=== PATIENT | male | born 1980 | race Caucasian/White ===

== ENCOUNTER 2021-11-05 21:04 | Emergency (ER) | payer SELFPAY ==
[2021-11-05] MEDS ORDERED: NA CHLORIDE 0.9% 500 ML ONE (22:07)
[2021-11-05] MEDS ORDERED: METOCLOPRAMIDE 10 MG/2mL INJ ONE (22:07)
[2021-11-05 22:09] LABS: Absolute Lymphocytes (CBC) 2.2 K/uL (0.7-4.9); Hematocrit 42.3 % (39.6-49.0); Lymphocytes % 32.2 % (15.3-44.8); MPV 8.8 fL (7.6-11.3); RBC Red Blood Cell Count 4.79 M/uL (4.33-5.43)
[2021-11-05 22:25] LABS: BUN Blood Urea Nitrogen 15 mg/dL (7-18); Bicarbonate 30 mmol/L (21-32); Glucose Level 94 mg/dL (74-106); Sodium Level 140 mmol/L (136-145)
[2021-11-05 22:29] LABS: Troponin High Sensitivity < 3.0 pg/mL (<58.9)
--- NOTE | 2021-11-06 00:23 | ER ---
Nurse's Notes [facility] Name: Roque Schumacher Age: 41 yrs Sex: Male : 1980 Arrival Date: 11/05/2021 Time: 21:09 Bed 28 Private MD: Diagnosis: Headache;Syncope Presentation: 11/05 21:18 Chief complaint: Patient states: MCCORD x 3 weeks. Coronavirus screen: Vaccine status: caren Patient reports being unvaccinated. Ebola Screen: Patient negative for fever greater than or equal to 101.5 degrees Fahrenheit, and additional compatible Ebola Virus Disease symptoms Patient denies exposure to infectious person. Patient denies travel to an Ebola-affected area in the 21 days before illness onset. Initial Sepsis Screen: Does the patient meet any 2 criteria? No. Patient's initial sepsis screen is negative. Does the patient have a suspected source of infection? No. Patient's initial sepsis screen is negative. Risk Assessment: Do you want to hurt yourself or someone else? Patient reports no desire to harm self or others. Onset of symptoms was October 18, 2021. 21:18 Method Of Arrival: Ambulatory caren 21:18 Acuity: MANJEET 3 caren Triage Assessment: 21:22 Headache History: Other MCCORD x 3 weeks with no relief from OTC medications. General: caren Appears uncomfortable, Behavior is calm, cooperative. Pain: Pain currently is 8 out of 10 on a pain scale. Pain began Started 3 weeks ago and is not relieved with OTC medications. Neuro: No deficits noted. 21:35 Pain: Also complains of nausea. Neuro: Reports dizziness, headache occipital area. lr4 Historical: - Allergies: 21:21 No Known Allergies; caren - Immunization history:: Client reports having NOT received the Covid vaccine. - Social history:: Smoking status: Patient reports the use of cigarette tobacco products, smokes one-half pack cigarettes per day. Screenin:34 Abuse screen: Denies threats or abuse. Nutritional screening: No deficits noted. lr4 Tuberculosis screening: No symptoms or risk factors identified. Fall Risk None identified. Assessment: 21:34 General: Appears in no apparent distress. comfortable, Behavior is calm, cooperative. lr4 Pain: Complains of pain in scalp Pain currently is 8 out of 10 on a pain scale. Quality of pain is described as pressure. 21:34 Neuro: No deficits noted. Cardiovascular: No deficits noted. Respiratory: No deficits lr4 noted. GI: Abdomen is flat, non-distended, Reports nausea, vomiting. 23:55 Reassessment: Patient is alert, oriented x 3, equal unlabored respirations, skin lr4 warm/dry/pink. Patient states symptoms have not improved. 11/06 00:32 Reassessment: Patient is alert, oriented x 3, equal unlabored respirations, skin bb warm/dry/pink. pt verbalized understanding of and agrees to plan of care discharge instructions given pt ambulated with steady gait to exit accompanied by family. Vital Signs: 11/05 21:18 BP 132 / 91; Pulse 71; Resp 18; Temp 98.9; Pulse Ox 100% on R/A; Weight 81.65 kg; caren Height 6 ft. 0 in. (182.88 cm); Pain 8/10; 21:24 BP 132 / 91; Pulse 71; Resp 18; Temp 98.9; Pulse Ox 100% on R/A; Pain 8/10; caren 23:27 BP 101 / 54; Pulse 62; Resp 18; Pulse Ox 99% on R/A; ss7 11/06 00:33 BP 122 / 94; Pulse 68; Resp 16 S; Pulse Ox 97% on R/A; bb 11/05 21:18 Body Mass Index 24.41 (81.65 kg, 182.88 cm) caren ED Course: 11/05 21:09 Patient arrived in ED. ja2 21:21 Triage completed. caren 21:24 Arm band placed on right wrist. caren 21:31 Junior Mancia PA is PHCP. jmm 21:31 Jorge Alonso DO is Attending Physician. jmm 21:33 Megan Farmer, BRIELLE is Primary Nurse. lr4 21:35 Patient has correct armband on for positive identification. Bed in low position. Call lr4 light in reach. Adult w/ patient. 21:35 No provider procedures requiring assistance completed. lr4 23:13 CT Head Brain wo Cont In Process Unspecified. EDMS 23:13 CT Head Angio In Process Unspecified. EDMS 11/06 00:21 Ephraim Darling MD is Referral Physician. jmm 00:21 Branden Campos MD is Referral Physician. jmm 00:21 David Cowan MD is Referral Physician. [facility] 00:21 David Manzanares MD is Referral Physician. [facility] 00:22 Tyrell Oshea MD is Referral Physician. [facility] 00:34 IV discontinued, intact, bleeding controlled, No redness/swelling at site. Pressure bb dressing applied. Administered Medications: 11/05 22:06 Drug: Reglan (metoCLOPramide) 20 mg Route: IVP; Site: left antecubital; lr4 23:54 Follow up: Response: Pain is decreased lr4 22:07 Drug: NS 0.9% 500 ml Route: IV; Rate: bolus; Site: left antecubital; lr4 23:54 Follow up: IV Status: Completed infusion lr4 Outcome: 21:35 Condition: stable lr4 11/06 00:22 Discharge ordered by . [facility] 00:34 Discharged to home ambulatory, with family. bb 00:34 Discharge instructions given to patient, Instructed on discharge instructions, follow up and referral plans. Demonstrated understanding of instructions, follow-up care. 00:35 Patient left the ED. bb Signatures: Dispatcher [employer] EDMS Junior Mancia PA PA jmm Ballard, Brenda, RN RN Zulema Harley Brenda, RN Irma Iraheta RN RN ss7 Megan Farmer RN RN lr4 Corrections: (The following items were deleted from the chart) 11/05 22:31 21:56 To radiology for Chest Single View+RAD.RAD.BRZ. lr4 EDMS
--- NOTE | 2021-11-06 00:23 | EDPHYS ---
Physician Documentation [facility] Name: Roque Schumacher Age: 41 yrs Sex: Male : 1980 Arrival Date: 11/05/2021 Time: 21:09 Bed 28 Private MD: ED Physician Jroge Alonso HPI: 11/05 21:42 This 41 yrs old Male presents to ER via Ambulatory with complaints of Dizziness, jmm Headache, Fainting, Nausea/Vomiting. 21:42 The patient complains of pain to the left base of the skull and right base of the jmm skull. The patient describes the headache as aching, throbbing. Onset: The symptoms/episode began/occurred gradually. This is a 41-year-old male no known chronic medical conditions presents emerged department with ongoing headache for the past 3 weeks. Pain is mainly at the base of his skull. Patient states he takes Excedrin every 4 hours to relieve symptoms. Denies fever, neck stiffness. Patient states he has had multiple episodes of syncope. Denies chest pain or shortness of breath. Historical: - Allergies: 21:21 No Known Allergies; caren - Immunization history:: Client reports having NOT received the Covid vaccine. - Social history:: Smoking status: Patient reports the use of cigarette tobacco products, smokes one-half pack cigarettes per day. ROS: 21:42 Constitutional: Negative for fever, chills, and weight loss, Cardiovascular: Negative jmm for chest pain, palpitations, and edema, Respiratory: Negative for shortness of breath, cough, wheezing, and pleuritic chest pain. 21:42 Neuro: Positive for headache, syncope. 21:42 All other systems are negative. Exam: 21:42 Constitutional: This is a well developed, well nourished patient who is awake, alert, jmm and in no acute distress. Head/Face: atraumatic. Eyes: EOMI, no conjunctival erythema appreciated ENT: Moist Mucus Membranes Neck: Trachea midline, Supple Chest/axilla: Normal chest wall appearance and motion. Cardiovascular: Regular rate and rhythm. No edema appreciated Respiratory: Normal respirations, no respiratory distress appreciated Abdomen/GI: Non distended, soft Back: Normal ROM Skin: General appearance color normal MS/ Extremity: Moves all extremities, no obvious deformities appreciated, no edema noted to the lower extremities Neuro: Awake and alert Psych: Behavior is normal, Mood is normal, Patient is cooperative and pleasant Vital Signs: 21:18 BP 132 / 91; Pulse 71; Resp 18; Temp 98.9; Pulse Ox 100% on R/A; Weight 81.65 kg; caren Height 6 ft. 0 in. (182.88 cm); Pain 8/10; 21:24 BP 132 / 91; Pulse 71; Resp 18; Temp 98.9; Pulse Ox 100% on R/A; Pain 8/10; caren 23:27 BP 101 / 54; Pulse 62; Resp 18; Pulse Ox 99% on R/A; ss7 11/06 00:33 BP 122 / 94; Pulse 68; Resp 16 S; Pulse Ox 97% on R/A; bb 11/05 21:18 Body Mass Index 24.41 (81.65 kg, 182.88 cm) caren MDM: 11/05 21:42 Patient medically screened. [facility] 11/06 00:16 Data reviewed: vital signs, nurses notes. Counseling: I had a detailed discussion with [facility] the patient and/or guardian regarding: the historical points, exam findings, and any diagnostic results supporting the discharge/admit diagnosis, lab results, radiology results, the need for outpatient follow up. ED course: There is mild relief of the patient's pain, headache. CT and CTA were negative. Patient's neck is supple, I do not suspect meningitis or subarachnoid hemorrhage. [place] syncope rules are negative. Patient advised follow-up with cardiology and neurology for further evaluation. Patient otherwise given strict return precautions. Patient understood agrees plan of care.. 11/05 21:48 Order name: Basic Metabolic Panel; Complete Time: 23:05 [facility] 11/05 21:48 Order name: CBC with Diff; Complete Time: 23:05 [facility] 11/05 21:48 Order name: Troponin HS; Complete Time: 23:05 [facility] 11/05 21:50 Order name: CT Head Brain wo Cont [facility] 11/05 21:50 Order name: CT Head Angio [facility] 11/05 21:48 Order name: EKG; Complete Time: 21:49 [facility] 11/05 21:48 Order name: Cardiac monitoring; Complete Time: 21:56 [facility] 11/05 21:48 Order name: EKG - Nurse/Tech; Complete Time: 21:56 [facility] 11/05 21:48 Order name: IV Saline Lock; Complete Time: 21:56 [facility] 11/05 21:48 Order name: Labs collected and sent; Complete Time: 21:56 [facility] 11/05 21:48 Order name: O2 Per Protocol; Complete Time: 21:57 [facility] 11/05 21:48 Order name: O2 Sat Monitoring; Complete Time: 21:57 [facility] Administered Medications: 11/05 22:06 Drug: Reglan (metoCLOPramide) 20 mg Route: IVP; Site: left antecubital; lr4 23:54 Follow up: Response: Pain is decreased lr4 22:07 Drug: NS 0.9% 500 ml Route: IV; Rate: bolus; Site: left antecubital; lr4 23:54 Follow up: IV Status: Completed infusion lr4 Disposition: 11/06 07:00 Co-signature as Attending Physician, Jorge Alonso DO I agree with the assessment and ms3 plan of care. Disposition Summary: 11/06/21 00:22 Discharge Ordered Location: Home [facility] Condition: Stable [facility] Diagnosis - Headache jmm - Syncope jm Followup: [facility] - With: Ephraim Darling MD - When: 2 - 3 days - Reason: Recheck today's complaints, Continuance of care, Re-evaluation by your physician Followup: [facility] - With: Branden Campos MD - When: 2 - 3 days - Reason: Recheck today's complaints, Continuance of care, Re-evaluation by your physician Followup: [facility] - With: David Cowan MD - When: 2 - 3 days - Reason: Recheck today's complaints, Continuance of care, Re-evaluation by your physician Followup: [facility] - With: David Manzanares MD - When: 2 - 3 days - Reason: Recheck today's complaints, Continuance of care, Re-evaluation by your physician Followup: [facility] - With: Tyrell Oshea MD - When: 2 - 3 days - Reason: Recheck today's complaints, Continuance of care, Re-evaluation by your physician Discharge Instructions: - Discharge Summary Sheet jmm - General Headache Without Cause jmm - Syncope jm Forms: - Medication Reconciliation Form jm - Thank You Letter jmm - Antibiotic Education jmm - Prescription Opioid Use [facility] Signatures: Dispatcher [employer] EDMS Junior Mancia PA PA jmm Sims, Marcus, DO DO ms3 Geneva Rodriguez, RN RN Megan Anthony RN RN lr4 Corrections: (The following items were deleted from the chart) 11/05 22:31 21:49 Chest Single View+RAD.RAD.BRZ ordered. EDMS EDMS 11/06 01:09 00:16 ED course: . joyce cook
[2021-11-06 02:21] VITALS: TEMP 98.9
[2021-11-06 02:25] VITALS: BP 122/94; O2SAT 97
--- NOTE | 2021-11-07 21:34 | RAD REPORT ---
EXAM DESCRIPTION: CT - Head Brain Wo Cont - 11/06/2021 6:37 am CLINICAL HISTORY: HEADACHE COMPARISON: None available TECHNIQUE: Axial CT of the head obtained from the skull apex to the skull base without contrast. Thi s exam was performed according to our departmental dose-optimization program, which includes automate d exposure control, adjustment of the mA and/or kV according to patient size and/or use of iterative reconstruction technique. FINDINGS: No acute intracranial hemorrhage identified. No mass, mass effect, shift of the midline, a bnormal extra-axial fluid collection or CT evidence of acute ischemic change identified. The ventricu lar system is unremarkable. No acute abnormalities of the supratentorial white matter, basal gangli a, cerebellum, or brainstem. The visualized paranasal sinuses and the mastoid air cells are relatively well aerated. No skull fr acture identified. Visualized orbits and globes are unremarkable. IMPRESSION: 1. No acute intracranial abnormality identified. Electronically signed by: Maciel Greene 11/05/2021 11:24 PM CDT Due to temporary technical issues with the PACS/Fluency reporting system, reports are being signed by the in house radiologists without review as a courtesy to insure prompt reporting. The interpreting radiologist is fully responsible for the content of the report.
--- NOTE | 2021-11-07 21:35 | RAD REPORT ---
EXAM DESCRIPTION: CT - Head angio - 11/06/2021 6:36 am CLINICAL HISTORY: 41 years, Male, HEADACHE COMPARISON: None. TECHNIQUE: Axial CTA images of the head obtained following the uncomplicated intravenous administrat ion of iodinated contrast. 3-D/MIP reformatted images available. This exam was performed according to our departmental dose-optimization program, which includes automated exposure control, adjustment of the mA and/or kV according to patient size and/or use of iterative reconstruction technique. FINDINGS: CTA head: In the anterior circulation, the intracranial internal carotid arteries have normal course and calibe r. The internal carotid arteries bifurcate into widely patent A1 and M1 segments of the anterior and middle cerebral arteries respectively. No evidence of flow-limiting stenosis, aneurysm, occlusion, or dissection in the anterior circulation. The anterior communicating artery is patent. In the posterior circulation, the intracranial vertebral arteries combine to form a widely patent bas ilar artery. The basilar artery bifurcates into widely patent P1 segments of the posterior cerebral a rtery. No evidence of stenosis, aneurysm, occlusion, or dissection in the posterior circulation. No definite acute intracranial abnormality identified. No acute abnormality of the osseous calvarium. Paranasal sinuses and mastoid air cells are well aerated. IMPRESSION: No evidence of stenosis, occlusion, or aneurysm in the intracranial arterial circulation . Electronically signed by: Maciel Greene 11/05/2021 11:31 PM CDT Due to temporary technical issues with the PACS/Fluency reporting system, reports are being signed by the in house radiologists without review as a courtesy to insure prompt reporting. The interpreting radiologist is fully responsible for the content of the report.
--- NOTE | 2021-11-09 12:40 | EKG ---
Test Date: 2021-11-05 Test Time: 21:48:44 Slag Wheeler: ANAMIKA MEASUREMENT RESULTS: Intervals: Rate: 65 MS: 188 QRSD: 92 QT: 390 QTc: 405 [place]: P: 51 MS: 188 QRS: 70 T: 44 INTERPRETIVE STATEMENTS: Normal sinus rhythm Normal ECG No previous ECG available for comparison Electronically Signed On 11-09-21 12:33:49 CDT by David Manzanares
== END 2021-11-06 00:35 | disposition home or self-care (01) ==
LOC: ER 21:04
DX: R51.9 Headache, unspecified (principal); R55 Syncope and collapse; F17.210 Nicotine dependence, cigarettes, uncomplicated
CPT/HCPCS: 36415; 70450; 70496; 80048; 84484; 85025; 93005; 96361; 96374; 99283; J2765; J7040; Q9967